=== PATIENT | female | born 1965 | race Caucasian/White ===

== ENCOUNTER 2024-07-19 09:43 | Outpatient (CLI) | payer MEDICAID ==
[~2024-07-19 09:43] MED LIST: FLUO10CA28 PO; FOLI1TAB27 PO; HYDR-4383 PO; LACT1CAP26 PO; PANT-47 PO
== END 2024-07-19 23:59 | disposition home or self-care (01) ==
LOC: RAD 09:43
PROVIDERS: ATTEND Family Medicine
DX: Z12.2 Encounter for screening for malignant neoplasm of respiratory organs (principal); J43.9 Emphysema, unspecified; J98.4 Other disorders of lung; F17.210 Nicotine dependence, cigarettes, uncomplicated
CPT/HCPCS: 71271